=== PATIENT | female | born 1945 | race Caucasian/White ===

== ENCOUNTER 2025-01-08 05:43 | Emergency (ER) | payer OTHER, SELFPAY ==
--- OUTSIDE RECORDS SUMMARY | 2023-10-21 09:45 | XMS_ITS ---
Author Organization [facility] Address [address] [place] [address] Care Team Providers Care Concrete Analyst Name Role Phone Dr. Keegan Jorgensen Primary Care Provider [phone] Jessica ConnJacquiNorashay Devlin [phone] REASON FOR VISIT PROPHY Encounters Encounter Location Date Provider Diagnosis [facility] [address] [place] [address] 10/21/2023 Nora Conn Acute gingivitis, plaque induced K05.00 Assessments Encounter Date Diagnosis (ICD Code) Assessment Notes Treatment Notes Treatment Clinical Notes Section Notes 10/21/2023 Acute gingivitis, plaque induced (ICD-10 - K05.00) Plan Of Treatment No Information Progress Notes * JOSESITO FITZPATRICK ADOB:[birth year] (79 yo F)Acc No.[id number]:10/21/2023 Patient: JOSESITO GOLDMAN Provider: Rashid Conn :1945 A ge:78 Y S ex:Female Date:10/21/2023 [facility], [id number] Pcp:Dr. Keegan Jorgensen Subjective: * Chief Complaints: * 1 . PROPHY. * Medical History: Objective: * Vitals: * Dental Examination/Plan : Tooth / Surface Status Description Provider TP PROPHYLAXIS - ADULT KH 10/20 Assessment: * Assessment: 1. A cute gingivitis, plaque induced - K05.00 (Primary) Plan: * Treatment: * Images: * Electronic signature of Niels Conn on 01/08/2025 at 06:06 AM EDT Sign off status: Pending * Provider: Rashid Conn Date: 0 10/21/2023 Generated for Saundra doty/Desean/Usha on: 0 01/08/2025 06:06 AM EDT
[2025-01-08 06:00] VITALS: BP 109/77; PULSE 101; TEMP 36.5; O2SAT 97
--- NOTE | 2025-01-08 06:01 | XR_ITS ---
[place] [id number] Patient Name: JOSESITO FITZPATRICK MRN: [id number] date: 1945 Sex: F Assigned Patient Location: ED.MAIN Current Patient Location: ED.MAIN Accession/Order Number: [id number] Exam Date: 01/08/2025 10:08 Report Date: 01/08/2025 10:08 At the request of: EVANGELISTA SANFORD DO Procedure: XR chest 1V XR chest 1V 01/08/2025 6:40 AM SIGNS AND SYMPTOMS: Weakness, decreased responsiveness PROTOCOL: Frontal radiograph of the chest COMPARISON: None FINDINGS: The trachea is midline. Atherosclerotic changes are noted in the aortic arch. The heart and mediastinal structures are within normal limits. The lung parenchyma is clear. The bony thorax is intact. XR/XR chest 1V IMPRESSION: No acute cardiopulmonary pathology. Impression dictated by: Venu Cristina M.D. 01/08/2025 10:08 AM Dictation Location: [place] [address] Electronically authenticated by: [id number] Y Date: 01/08/2025 10:08
--- OUTSIDE RECORDS SUMMARY | 2025-01-08 06:06 | XMS_ITS | Encounter Summary ---
Author Organization [facility] Address [address] [place] [address] Phone Care Team Providers Care Dredge Worker Name Role Phone Unavailable Primary Care Provider Unavailabl e Encounter Details Date Type Department Care Team (Late st Contact Info) Description 11/05/2024 Scanned Document [facility] [address] [place] [address] Scanning, Generic Provider Social History Tobacco Use Types Packs/Day Years Used Date Smoking Tobacco: Never Assessed Comments Unknown Sex and Gender Information Value Date Recorded Sex Assigned at Not on file Legal Sex Female 11:36 AM EST Gender Identity Not on file Sexual Orientation Not on file documented as of this encounter Plan of Treatment Not on file documented as of this encounter Procedures Procedure Name Priority Date/Time Associated Diagnosis Comments ECHOCARDIOGRAM 11/05/2024 documented in this encounter Results * Echocardiogram (11/05/2024) Narrative 11/05/2024 Ordered by an unspecified provider. us Generic Provider Scanning CV ECHO PROCEDURES Fin al Result documented in this encounter Visit Diagnoses Not on filedocumented in this encounter
--- OUTSIDE RECORDS SUMMARY | 2025-01-08 06:06 | XMS_ITS | Clinical Summary ---
Author Organization [facility] Address [address] [place] [address] Phone Care Team Providers Care Rental Sales Representative Name Role Phone Unavailable Primary Care Provider Unavailabl e Encounters Date Type Department Care Team Description 11/22/2024 Scanned Document [facility] [address] [place] [address] Scanning, Generic Provider 11/05/2024 Scanned Document [facility] [address] [place] [phone] Scanning, Generic Provider from Last 3 Months Social History Tobacco Use Types Packs/Day Years Used Date Smoking Tobacco: Never Assessed Comments Unknown Sex and Gender Information Value Date Recorded Sex Assigned at Not on file Legal Sex Female 11:36 AM EST Gender Identity Not on file Sexual Orientation Not on file Plan of Treatment Health Maintenance Due Date Last Done Comments Bone Density Scan 1945 Lipid Panel 1945 Welcome to Medicare Visit 1945 Hepatitis C Screening 01/18/1964 DTaP/Tdap/Td Vaccines (1 - Tdap) 01/18/1968 Pneumococcal Vaccine (1 of 1 - PCV) 01/18/1996 Zoster Vaccines (1 of 2) 01/18/1996 RSV High Risk: (Elderly (60+ ) or Population) (1 - 1-dose 75+ series) 2021 COVID-19 Vaccine ( - 2023-2 5 season) 2024 Influenza Vaccine (#1) 2025 HIB Vaccines Aged Out No longer eligi ble based on patient's age to complete this topic HPV Vaccines (No Doses Required) Completed Hepatitis A Vaccines Aged Out No long er eligible based on patient's age to complete this topic Hepatitis B Vaccines Aged Out No long er eligible based on patient's age to complete this topic IPV Vaccines Aged Out No longer eligi ble based on patient's age to complete this topic Meningococcal Vaccine Aged Out No sharona braulio eligible based on patient's age to complete this topic Rotavirus Vaccines Aged Out No longer eligible based on patient's age to complete this topic Procedures Procedure Name Priority Date/Time Associated Diagnosis Comments ECHOCARDIOGRAM 11/05/2024 from Last 3 Months Results * Echocardiogram (11/05/2024) Narrative 11/05/2024 Ordered by an unspecified provider. Generic Provider Scanning CV ECHO PROCEDURES Fin al Result from Last 3 Months Insurance [employer] [facility]
--- OUTSIDE RECORDS SUMMARY | 2025-01-08 06:06 | XMS_ITS | Encounter Summary ---
Author Organization [facility] Address [address] [place] [address] Phone Care Team Providers Care Driller Machine Name Role Phone Unavailable Primary Care Provider Unavailabl e Encounter Details Date Type Department Care Team (Late st Contact Info) Description 11/22/2024 Scanned Document [facility] [address] [place] [phone] Scanning, Generic Provider Social History Tobacco Use Types Packs/Day Years Used Date Smoking Tobacco: Never Assessed Comments Unknown Sex and Gender Information Value Date Recorded Sex Assigned at Not on file Legal Sex Female 11:36 AM EST Gender Identity Not on file Sexual Orientation Not on file documented as of this encounter Plan of Treatment Not on file documented as of this encounter Visit Diagnoses Not on filedocumented in this encounter
--- NOTE | 2025-01-08 06:10 | ED.GENADUL1 ---
HPI HPI - General Adult General Chief complaint: Weakness Time Seen by Provider: 01/08/25 05:57 Source: other Source information: EMS, nurse from [place] Mode of arrival: ambulance Limitations: altered mental status and physical limitation History of Present Illness HPI narrative: The patient is a 79-year-old female who presents to the emergency department from the [place]. She is being transferred because she has tachypnea. History of present illness is significantly limited because the patient is nonverbal. 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 Since then, she has been nonverbal. EMS indicated that the [facility] was concerned about her rate of breathing. At 6:11 AM I contacted family member and emergency contact Berenice. They indicated that they wanted the patient to have investigative studies done and everything in up to chest compressions and if she were to need it dialysis, which they report they would not want her to have. But, at this time they want fluids, antibiotics, blood work, and other investigative studies to determine why she has had a rapid decline. The caller tells me that the patient has not been taking her medications. She was having a hard time taking her medications. They looked and saw that the patient had a sore in her mouth and therefore the patient was started on antibiotic therapy. Caller states that the patient also cannot use her tongue very well and has not really been eating or drinking. They are also concerned about her kidney function as she has had a history of kidney disease. They inform me that she may need IV fluids. (I also tried to contact Mariluz as well, but left a generic message when she did not answer. 06:48 The patient's granddaughter called back and indicated that they want everything is done as mentioned. She also states that the patient at the time did not want a PEG tube for food or dluids. She states that her grandmother is acting like this because her kidney function. Related Data Allergies Allergy/AdvReac Type Severity Reaction Status Date / Time alfuzosin Allergy Severe Anaphylaxis Verified 01/08/25 06:00 lisinopril Allergy Severe Unknown Verified 01/08/25 06:00 allopurinol Allergy Unknown Unknown Verified 01/08/25 06:00 aspirin Allergy Unknown Unknown Verified 01/08/25 06:00 morphine Allergy Unknown Unknown Verified 01/08/25 06:00 NSAIDS (Non-Steroidal Allergy Unknown Unknown Verified 01/08/25 06:00 Anti-Inflamma sulfamethoxazole (From Allergy Unknown Unknown Verified 01/08/25 06:00 Sulfamethoxazole-Trimethoprim) trimethoprim (From Allergy Unknown Unknown Verified 01/08/25 06:00 Sulfamethoxazole-Trimethoprim) Review of Systems ROS Narrative Unable to obtain secondary to patient's condition. I do know that she had a recent stroke on December 21 and she has some type of intraoral infection and she is on Augmentin for that. Other than these documented concerns, review of systems unable to be obtained secondary to the patient's mental state Status of ROS unobtainable due to mental status Exam Narrative Exam Narrative: Prior to examining the patient, I have washed with hospital approved and provided Antiseptic Hand Tipping Machine Operator and have also applied gloves.? Prior to touching the patient, I asked for consent to examine the patient.? General: Alert, well nourished, moderate respiratory distress. Patient is tachypneic. Eye: PERRL, EOMI, normal conjunctiva. 4 mm and reactive. Please note that the patient's bilateral eyes has yellow dried discharge in the medial canthus bilaterally. She prefers to keep the right eye closed HENT: Normocephalic, normal hearing, dry oral mucosa, no scleral icterus, no sinus tenderness. Neck: Supple, non-tender, no carotid bruits, no JVD, no lymphadenopathy. Lungs: Clear to auscultation and percussion, non-labored respiration. No rhonchi, rales, wheezing, tachypnea Heart: Normal rate, regular rhythm, +3/6 SE murmur, no gallop or edema. Abdomen: Soft, non-tender, non-distended, normal bowel sounds, no masses. Musculoskeletal: Normal range of motion and strength, no tenderness or swelling. Skin: Skin is warm, dry and pink, no rashes or lesions. Neurologic: Awake, alert, and oriented X3, CN II-XII intact. Psychiatric: Cooperative, appropriate mood and affect.? Following the conclusion of the examination, I have washed my hands thoroughly after removing examination gloves. Constitutional Vital Signs, click to edit/add: Last Vital Signs Temp 97.7 F 01/08/25 06:00 Pulse 101 H 01/08/25 06:00 Resp 40 H 01/08/25 06:00 BP 109/77 01/08/25 06:00 Pulse Ox 97 01/08/25 06:00 O2 Del Method Room Air 01/08/25 06:00 Course Course Hospital Course: Sepsis protocol commenced at 06:15. Upon initial presentation the patient was only administered 1 L of lactated Ringer solution. Patient has a very harsh murmur. I cannot find where the patient has had an echocardiogram. The patient at this time does not have any evidence of hypotension and does not require the 30 cc/kg bolus at this time. But, the patient will be given 1 L to start with since the patient obviously appears dry. Sepsis of unknown origin at this time so I have ordered Rocephin and vancomycin. The patient has not been taking blood pressure medications since leaving [facility]. I went through the patient's MAR and there is no medications listed for blood pressure. Patient's daughter states that she has not been taking her blood pressure medications for them. However, this was before I reviewed the MAR so I have no clue what blood pressure medication the patient was on. I tried to review medical record documentation from the hospital but the patient's never been here before. Vital Signs Vital signs: Vital Signs Temperature 97.7 F 01/08/25 06:00 Pulse Rate 101 H 01/08/25 06:00 Respiratory Rate 40 H 01/08/25 06:00 Blood Pressure 109/77 01/08/25 06:00 Pulse Oximetry 97 01/08/25 06:00 Oxygen Delivery Method Room Air 01/08/25 06:00 Temperature 97.7 F 01/08/25 06:00 Pulse Rate 101 H 01/08/25 06:00 Respiratory Rate 40 H 01/08/25 06:00 Blood Pressure 109/77 01/08/25 06:00 Pulse Oximetry 97 01/08/25 06:00 Oxygen Delivery Method Room Air 01/08/25 06:00 Medical Decision Making MDM Narrative Medical decision making narrative: In summary, the patient is a 79-year-old female presenting to the emergency department from the [facility]. Patient is being brought to the emergency department because the patient is tachypneic. Emergency contact instructs us to do everything short of intubation. They also would not want dialysis if that is a need. Chart reviewed: Yes, try to look through the patient's medical history. I also went through all of the documentation that the [place] had from the patient's admission record which presumably occurred when she was admitted after her last hospitalization for the stroke. Additional historian: EMS and nursing staff at the [place] CODE STATUS: DNR/CC The case is signed out to my colleague at shift change at 7 AM as there is nothing back. Pending blood work and CXR. Differential Diagnosis Differential Diagnosis: Dehydration, acute kidney injury, electrolyte abnormality, sepsis, pneumoni Medical Records Medical records reviewed: Yes I reviewed the patient's medical records Lab Data Lab results reviewed: Yes I reviewed the patient's lab results Discharge Plan Discharge Patient Disposition: Still a Patient
[2025-01-08 07:09] VITALS: O2SAT 97
--- NOTE | 2025-01-08 07:09 | PC.NURSE ---
Patient to ED by EMS from [place]. Nursing report stated that the patient was breathing rapidly and had low BP after having high BP yesterday. he also said that she was only responding to her name and only by opening one eye. He said he thought she might have modeling on one heel, but he was not sure. He called family and they wanted her to be evaluated in the ER. Patient is DNR-CC. On arrival, patient is breathing rapidly, head back, mouth gaping open, only responding to sternal rub. Her vital signs were WNL apart from her respiratory rate. She was made comfortable and Dr. Poe was in to evaluate her. Dr. Poe then contacted the family to see what they wanted done and what their concerns were. IV was initiated, labs drawn, blood cultures obtained. I attempted to obtain a urine specimen via straight cath, but was unsuccessful due to the catheter coiling. Rupal Gregorio RN tried also and the same thing happened when she attempted. We then tried to insert a marquez catheter and the same thing happened, so we cleaned the patient up and placed her in a gown and patient hand off to Lolly FIERRO happened at this time.
[2025-01-08 07:13] LABS: Hematocrit 35.8 % (36.0-48.0); Hemoglobin 9.3 g/dL (12.0-16.0); Mean Corpuscular HGB Conc 26.0 g/dL (29.9-35.2); Mean Corpuscular Hemoglobin 23.5 pg (26.7-34.0); Mean Corpuscular Volume 90.4 fL (81.0-99.0); Platelet Count 355 10^3/uL (150-450); Red Blood Count 3.96 10^6/uL (4.20-5.40); White Blood Count 24.2 10^3/uL (4.0-11.0)
[2025-01-08 07:14] LABS: PCO2 VBG 41.4 mmHg (40.0-52.0); pH VBG 7.316 (7.330-7.430)
[2025-01-08] MEDS: VANCOMYCIN HCL 1,000 MG in 0.9 % SODIUM CHLORIDE 500 ML 250 MG IV (07:21)
[2025-01-08 07:32] LABS: Alanine Aminotransferase 242 U/L (14-59); Albumin Globulin Ratio 0.9; Albumin Level 3.6 g/dL (3.4-5.0); Alkaline Phosphatase 117 U/L (46-116); Anion Gap 27.6; Aspartate Amino Transferase 252 U/L (15-37); Calcium 9.9 mg/dL (8.5-10.1); Carbon Dioxide 22.2 mmol/L (21.0-32.0); Estimated GFR (African America 11 (>=60 mL/min/1.73m^2); Estimated GFR (Non-African Ame 9 (>=60 mL/min/1.73m^2); Globulin 4.1 g/dL; Glucose 141 mg/dL (74-106); Potassium 4.8 mmol/L (3.5-5.1); Total Protein 7.7 g/dL (6.4-8.2)
[2025-01-08 07:34] LABS: Basophils Abs Manual 0.24 10^3/uL (0.00-0.10); Basophils Percent Manual 1.0 % (0.2-2.0); Eosinophils Absolute Manual 0.00 10^3/uL (0.00-0.70); Eosinophils Percent Manual 0.0 % (0.9-7.0); Hypochromasia 2+; Lymphocytes Absolute Manual 1.69 10^3/uL (1.20-3.80); Lymphocytes Percent Manual 7.0 % (20.5-60.0); Monocytes Absolute Manual 1.21 10^3/uL (0.30-0.80); Monocytes Percent Manual 5.0 % (1.7-12.0); Polychromasia 1+; Segmented Neut Absolute Manual 21.05 10^3/uL (1.4-6.5); Segmented Neutrophils % Manual 87.0 (43.0-75.0)
[2025-01-08 07:35] LABS: Anisocytosis 1+
[2025-01-08 07:38] LABS: Chloride 130 mmol/L (98-107); Sodium 175 mmol/L (136-145)
[2025-01-08 07:39] LABS: Blood Urea Nitrogen 120.0 mg/dL (7.0-18.0); Lactate/Lactic Acid 4.4 mmol/L (0.4-2.0)
[2025-01-08 07:48] LABS: Magnesium 3.6 mg/dL (1.8-2.4)
[2025-01-08 09:06] LABS: Lactate/Lactic Acid 7.3 mmol/L (0.4-2.0)
--- NOTE | 2025-01-08 09:34 | PC.NURSE ---
Pt breathing has become more agonal with periods of apnea. BP not reading. Pt heart rate 48. Dr. Russell notified
--- NOTE | 2025-01-08 09:48 | PC.NURSE ---
0943 pt heart rate [address] Russell confirmed time of at 0940
--- NOTE | 2025-01-08 10:13 | PC.NURSE ---
[facility] contacted. per [facility] pt does not meet donation criteria and can be released to preferred home. Dr. Russell spoke to feeder operator automatic and pt is not a feeder operator automatic case and can be released to preferred home.
--- NOTE | 2025-01-08 10:16 | PC.NURSE ---
Nursing road gang supervisor at bedside talking with family, family states they would like [facility] in [place].
--- NOTE | 2025-01-08 10:32 | PC.NURSE ---
Multiple attempts made to contact [facility] the patients PCP. [facility] called for transport.
--- NOTE | 2025-01-08 11:11 | PC.NURSE ---
[facility] home arrived to picker / packer patient. RN assisted with pt transfer. Belongings were placed with patient on cart. Release of body form signed and witnessed by 2 RNs.
== END 2025-01-08 11:13 | disposition expired ==
PROVIDERS: Emergency Provider Emergency Medicine; PCP Family Medicine
DX: A41.9 Sepsis, unspecified organism (principal); N19 Unspecified kidney failure; E87.0 Hyperosmolality and hypernatremia; R41.82 Altered mental status, unspecified; R65.20 Severe sepsis without septic shock; R06.82 Tachypnea, not elsewhere classified; I69.398 Other sequelae of cerebral infarction; Z66 Do not resuscitate
CPT/HCPCS: 36415; 71045; 80053; 81001; 82800; 83605; 83735; 85007; 85027; 87040; 96365; 96366; 96368; 99285; J0696; J3370